=== PATIENT | male | born 2005 | race Caucasian/White ===

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

== ENCOUNTER 2023-11-08 17:09 | Emergency (ER) | payer OTHER, SELFPAY ==
[2023-11-08 17:16] VITALS: BP 127/82; PULSE 75; RESP 16; TEMP 36.9; O2SAT 98
--- NOTE | 2023-11-08 17:22 | ED.SKABFB ---
HPI - Skin/Abscess/Foreign Bdy General Chief complaint: Skin/Abscess/Foreign Body Stated complaint: Rash Time Seen by Provider: 11/08/23 17:23 Source: patient, RN notes reviewed and old records reviewed Mode of arrival: ambulatory Limitations: no limitations History of Present Illness HPI narrative: 18 year old male accompanied by friend presents to express care with area of red scabbed itchy rash around right ankle area for the past 1.5 to 2 weeks that is itchy. Patient reports that [place] or [place] known exposure to poisonous plants. Patient does state that prior to noting rash was in [place] and did walk on beach.No drainage or pain to area of rash but itchy. MD complaint: rash Onset (ago): week(s) (1.5-2 weeks) Severity: mild Treatments prior to arrival: none Related Data Home Medications Medication Instructions Recorded Confirmed cetirizine 10 mg tablet (Zyrtec) 10 mg PO DAILY 11/08/23 11/08/23 Allergies Allergy/AdvReac Type Severity Reaction Status Date / Time No Known Allergies Allergy Verified 11/08/23 17:16 Review of Systems Review of Systems: CONSTITUTIONAL: Denies fever, chills, or sweats. CARDIOVASCULAR: Denies chest pain, palpitations, or edema. RESPIRATORY: Denies cough or dyspnea. SKIN: Reports red raised with some scabbing to area around right ankle area for 1/5 to 2 week duration is itchy MUSCULOSKELETAL: Denies joint pain or myalgia. NEUROLOGIC: Denies headache, numbness, or weakness. All systems reviewed & are unremarkable except as noted in HPI and below PMFSH Family History Family History Other Family history non-contributory Social History Social History Smoking status: Never smoker Alcohol intake: unknown Substance use type: does not use Gender identity (if verbalized by the patient): Male Comments At time of signature, agree with nursing past medical, surgical, social and family history. There is no relevant family history pertinent to the presenting complaint Exam Narrative: GENERAL: Well-appearing, well-nourished, and in no acute distress. HEAD: Normocephalic, atraumatic. EYES: PERRLA, conjunctivae clear, and EOMI. ENT: Mucous membranes moist. Oropharynx without edema, erythema or lesions. NECK: Supple. No lymphadenopathy CHEST: Clear to auscultation. No respiratory distress.SAO2 98% on room air HEART: Regular rate and rhythm. SKIN: Warm, dry.? red raised patchy area to right ankle with some scabbing no pain or drainage,itchy NEURO:? Alert and oriented x3. PSYCH: Normal mood and affect Course Course Emergency Course: Patient is aware of diagnosis, understands and agrees to treatment plan.? Anticipatory guidance given.? Patient agrees to follow-up as directed and is aware of reasons to seek care at the emergency department. Portions of this record may have been created with voice recognition software Level of Care: Express Care Visit Vital Signs Vital signs: Vital Signs Temperature 36.9 C 11/08/23 17:16 Pulse Rate 75 11/08/23 17:16 Respiratory Rate 16 11/08/23 17:16 Blood Pressure 127/82 11/08/23 17:16 Pulse Oximetry 98 11/08/23 17:16 Oxygen Delivery Room Air 11/08/23 17:16 Temperature 36.9 C 11/08/23 17:16 Pulse Rate 75 11/08/23 17:16 Respiratory Rate 16 11/08/23 17:16 Blood Pressure 127/82 11/08/23 17:16 Pulse Oximetry 98 11/08/23 17:16 Oxygen Delivery Room Air 11/08/23 17:16 Reviewed MDM - Skin/Abscess/Foreign Bdy MDM Narrative Medical decision making narrative: Does not appear at this time to be erythema multiforme, bullous, SJS, TEN; no evidence at this time to suggest RMSF, endocarditis or Lyme disease; patient looks well, nontoxic and is tolerating oral intake; no neurologic signs or symptoms; no headache, photophobia or neck pain; afebrile; appro
== END 2023-11-08 17:45 | disposition home or self-care (01) ==
PROVIDERS: Emergency Provider Registered Nurse
DX: L25.9 Unspecified contact dermatitis, unspecified cause (principal); S90.561A Insect bite (nonvenomous), right ankle, initial encounter; W57.XXXA Bitten or stung by nonvenomous insect and other nonvenomous arthropods, initial encounter
CPT/HCPCS: 99213; G0463

== ENCOUNTER 2024-02-25 17:11 | Emergency (ER) | payer OTHER, SELFPAY ==
--- NOTE | 2024-02-25 17:17 | ED.URI ---
HPI - URI/Sore Throat General Chief Complaint: Upper Respiratory Infection Stated Complaint: congestion,cough Time Seen by Provider: 02/25/24 17:16 Source: patient Mode of arrival: ambulatory Limitations: no limitations History of Present Illness HPI Narrative: Anibal is a 18-year-old male patient presenting to the clinic today with complaints of productive cough with green phlegm and sinus congestion for over 1 week. He reports no known fevers, chills, body aches. Denies any shortness of breath or chest pain. Noticed today that when he was blowing his nose and coughing up some phlegm there was some blood tinged sputum. MD elicited complaint: cough, nasal congestion and sinus pain Related Data Home Medications ?Medication ?Instructions ?Recorded ?Confirmed ?Last Taken ?Type No Home Medications 02/25/24 02/25/24 Unknown History Allergies Allergy/AdvReac Type Severity Reaction Status Date / Time No Known Allergies Allergy Verified 02/25/24 17:23 Review of Systems Review of Systems: Pertinent positives per HPI. Patient denies any fever, chills, rash, visual changes, dizziness, shortness of breath, chest pain, palpitations, nausea, vomiting, diarrhea, constipation, abdominal pain, or any urinary issues. PMFSH Family History Family History Other Family history non-contributory Social History Social History Smoking status: Never smoker Alcohol intake: unknown Substance use type: does not use Gender identity (if verbalized by the patient): Male Comments At the time of my signature, I reviewed and agree with the nursing past medical, surgical, social, and family history. There is no relevant family history pertinent to the patient complaint. Exam Narrative: General: Well-developed, well nourished, in no apparent distress Head: Normocephalic, atraumatic Eyes: Pupils equally round and reactive to light bilaterally, EOM intact, sclera and conjunctive clear, no discharge, lids normal Ears: TMs intact and clear, ear canals clear, no drainage, grossly hearing normal. Nose: Nares patent, yellow nasal discharge, moderate inflammation, maxillary sinus tenderness. Mouth: Oral pharynx without lesions or masses, good dentition, MMM. Postnasal drip Neck: Supple, trachea midline, no enlargement of anterior or posterior cervical nodes, no thyroid masses or goiter palpable. Cardio: Regular rate and rhythm, s1 and s2 normal, no murmur appreciated. Resp: Clear to auscultation bilaterally, no rhonchi, rales, wheezing or rubs Course Course Emergency Course: Portions of this record may have been created with voice recognition software. Level of Care: Express Care Visit Vital Signs Vital signs: Vital Signs Temperature 37.6 C 02/25/24 17:24 Pulse Rate 87 02/25/24 17:24 Respiratory Rate 18 02/25/24 17:24 Blood Pressure 132/74 02/25/24 17:24 Pulse Oximetry 98 02/25/24 17:24 Oxygen Delivery Room Air 02/25/24 17:24 Temperature 37.6 C 02/25/24 17:24 Pulse Rate 87 02/25/24 17:24 Respiratory Rate 18 02/25/24 17:24 Blood Pressure 132/74 02/25/24 17:24 Pulse Oximetry 98 02/25/24 17:24 Oxygen Delivery Room Air 02/25/24 17:24 Vital signs reviewed MDM - URI/Sore Throat MDM Narrative Medical decision making narrative: At the time of visit patient is resting comfortably on the exam table. Patient appears to be nontoxic. Plan: I suspect patient has acute bacterial rhinosinusitis. Prescription for Augmentin was sent to the pharmacy. Supportive measures were discussed with the patient and they voiced understanding discharge instructions and agrees to treatment plan. Return precautions reviewed Differential Diagnosis Differential diagnosis: Likely upper respiratory infection, croup, otitis media, sinusitis, viral infection, bronchitis, influenza, pharyngitis and other (COVID) Discharge Plan Discharge Clinical Impression: Acute bacterial rhinosinusitis Patient Disposition: Home, Self-Care Condition: Stable Instructions: Antibiotic Form, Sinusitis (ED) Additional Instructions: Take prescription medications only as prescribed-Augmentin and prednisone Increase fluids and stay well hydrated Tylenol/motrin for pain/fever Flonase and OTC antihistamines as directed Vicks vapor rub to open sinuses Sinus rinses for congestion Cepacol spray, cough drops, throat lozenges, warm tea with honey/lemon, gargle salt water to soothe throat BRAT diet for diarrhea Clear liquids x 24 hours then advance as tolerated for nausea/vomiting Go to the ED if you develop a worsening in your condition- high fever not controlled by Tylenol or Motrin, dehydration, weakness, lethargy, shortness of breath, or chest pain. Follow up with your PCP in 3-5 days if symptoms persist. Patient Language: Trinidadian Prescriptions: New amoxicillin-pot clavulanate 875-125 mg tablet 1 tablet PO Q12H 10 Days Qty: 20 0RF prednisone 20 mg tablet 40 mg PO DAILY 5 Days Qty: 10 0RF No Action No Home Medications Follow-up/Referrals: Bhavesh Bledsoe MD [Primary Care Provider] - Time of Disposition: 17:35 Quality NIHSS Nursing Documentation ED NIHSS nursing documentation: reviewed/agree
[2024-02-25 17:24] VITALS: BP 132/74; PULSE 87; RESP 18; TEMP 37.6; O2SAT 98
== END 2024-02-25 17:40 | disposition home or self-care (01) ==
PROVIDERS: Emergency Provider Nurse Practitioner Family; PCP Pediatrics
DX: J01.90 Acute sinusitis, unspecified (principal); B96.89 Other specified bacterial agents as the cause of diseases classified elsewhere
CPT/HCPCS: 99213; G0463